=== PATIENT | female | born 1950 | race Hispanic/Latino ===

== ENCOUNTER 2018-03-09 14:54 | Emergency (ER) | payer SELFPAY ==
[2018-03-09] MEDS ORDERED: HYDROCODONE/APAP 5/325 MG TAB ONE (15:31)
--- NOTE | 2018-03-09 16:16 | RAD REPORT ---
EXAM DESCRIPTION: CT - Head C Spine Mpr Wo Con - 03/09/2018 3:54 pm CLINICAL HISTORY: Head and neck injury status post fall. Head and neck pain COMPARISON: None. TECHNIQUE: Computed axial tomography of the head and cervical spine was obtained. Sagittal and coronal reconstruction was performed. All CT scans are performed using dose optimization technique as appropriate and may include automated exposure control or mA/KV adjustment according to patient size. FINDINGS: An intracranial bleed is not seen. The ventricles are normal in caliber. An extra-axial fl uid collection is not noted. A 6 millimeter calcification is present within the right frontal lobe. An 8 millimeter calcification is present within the left parietal lobe. A 9 millimeter calcification is present within the left tem poral region. Fluid within the visualized sinuses and mastoids is not seen A cervical fracture is not visualized. No dislocation is noted. IMPRESSION: No acute intracranial abnormality is seen. Cerebral calcifications may be secondary to prior inflammation or cavernous angiomas. A cervical fracture is not visualized. If the patient continues to have symptoms to suggest intracra nial /spinal cord pathology then MRI would be recommended
--- NOTE | 2018-03-09 17:47 | RAD REPORT ---
EXAM DESCRIPTION: RAD - Lumbar Spine 3 Views - 03/09/2018 5:39 pm CLINICAL HISTORY: Back pain FINDINGS: The alignment of the lumbar spine is satisfactory. No fracture or dislocation is seen. The bones are osteoporotic Mild spondylosis involves the lumbar spine
--- NOTE | 2018-03-09 18:13 | ER ---
Nurse's Notes [facility] Name: Melisa Prajapati Age: 67 yrs Sex: Female : 1950 Arrival Date: 03/09/2018 Time: 14:55 Bed 15 Private MD: Diagnosis: Fall on same level from slipping, tripping and stumbling;Other and unspecified injuries of head;Myalgia Presentation: 03/09 14:56 Presenting complaint: EMS states: was in a ar when she slipped and fell and hit the hj back of her head, taking aspirin 81 mg; palpable hematoma on the back of head; negative for lac; denies LOC; A\T\O x 3; on C collar due to neck pain;. Transition of care: patient was not received from another setting of care. Onset of symptoms was March 09, 2018. Risk Assessment: Do you want to hurt yourself or someone else? Patient reports no desire to harm self or others. Initial Sepsis Screen: Does the patient meet any 2 criteria? No. Patient's initial sepsis screen is negative. Does the patient have a suspected source of infection? No. Patient's initial sepsis screen is negative. Care prior to arrival: None. 14:56 Method Of Arrival: Ambulatory 14:56 Acuity: FELICIANO 4 14:56 Mechanism of Injury: Fall. 14:56 Trauma event details: Injury occurred in the [facility], Injury occurred: in a public building. Injury occurred: March 09, 2018. Triage Assessment: 14:56 General: Appears in no apparent distress. uncomfortable, Behavior is calm, cooperative, hj appropriate for age. Pain: Complains of pain in back of head. Trauma Activation: Alert Physician: ED Physician; Name: Hugo; Notified At: 14:56; Arrived At: 14:56 Physician: General Surgeon; Name: ; Notified At: 14:56; Arrived At: Physician: Radiology; Name: ; Notified At: 14:56; Arrived At: Physician: Respiratory; Name: ; Notified At: 14:56; Arrived At: Physician: Lab; Name: ; Notified At: 14:56; Arrived At: Historical: - Allergies: 14:57 Cipro; hj - Home Meds: 14:57 metformin 1,000 mg oral tab 2 times per day [Active]; Jardiance oral oral [Active]; hj losartan oral oral [Active]; metoprolol tartrate Oral [Active]; Novolog Sub-Q [Active]; Victoza 2-Juan subcutaneous subcutaneous [Active]; - PMHx: 14:57 Diabetes - NIDDM; Hypertension; hj - PSHx: 14:57 Unable to obtain; hj - Immunization history:: Adult Immunizations up to date. - Social history:: Smoking status: Patient/guardian denies using tobacco. - Immunization history: Last tetanus immunization: unknown. - Ebola Screening: : Patient negative for fever greater than or equal to 101.5 degrees Fahrenheit, and additional compatible Ebola Virus Disease symptoms Patient denies exposure to infectious person Patient denies travel to an Ebola-affected area in the 21 days before illness onset. Screenin:56 Abuse screen: Denies threats or abuse. Denies injuries from another. Nutritional hj screening: No deficits noted. Tuberculosis screening: No symptoms or risk factors identified. Fall Risk None identified. Primary Survey: 14:56 A: Airway: patent, No supplemental oxygen in use on arrival. Oral cavity: clear, gag hj reflex present, Trachea midline. Breathing/Chest: Respiratory pattern: regular, Respiratory effort: spontaneous, unlabored, Breath sounds: clear, bilaterally. Chest inspection: symmetrical rise and fall of the chest. Circulation: Cardiac rhythm: sinus rhythm Heart tones present. Pulses: palpable right radial artery and left radial artery. Skin color: pink, Skin temperature: warm, dry. Disability Alert. 15:14 Reassessment Airway Airway Patent Oxygen No O2 Oral cavity Clear +Gag reflex hj Breathing/Chest Respiratory pattern Regular Respiratory effort Spontaneous Unlabored Breath sounds Clear Chest inspection Symmetrical Circulation Heart rhythm Sinus rhythm Heart tones Present Pulses Palpable Color [place] Temperature Warm Dry Disability Alert. 16:15 Reassessment Airway Airway Patent Oxygen No O2 Oral cavity Clear +Gag reflex hj Breathing/Chest Respiratory pattern Regular Respiratory effort Spontaneous Unlabored Breath sounds Clear Chest inspection Symmetrical Circulation Heart rhythm Sinus rhythm Heart tones Present Pulses Palpable Color [place] Temperature Warm Dry Disability Alert. Secondary Survey: 14:56 HEENT: No deficits noted. Gastrointestinal: No deficits noted. : No signs and/or hj symptoms were reported regarding the genitourinary system. Musculoskeletal: Reports pain in back of head. Assessment: 14:56 Reassessment: see triage for assessment;. hj 15:32 Reassessment: Patient and/or family updated on plan of care and expected duration. Pain hj level reassessed. Patient is alert, oriented x 3, equal unlabored respirations, skin warm/dry/pink. wheeled to CT;. 15:45 Reassessment: back from CT;. hj 16:30 Reassessment: Patient and/or family updated on plan of care and expected duration. Pain hj level reassessed. Patient is alert, oriented x 3, equal unlabored respirations, skin warm/dry/pink. C collar removed;. 16:56 Reassessment: No changes from previously documented assessment. awaiting POC:. hj Vital Signs: 14:58 BP 140 / 62; Pulse 82; Resp 18; Temp 97.9(TE); Pulse Ox 95% on R/A; Weight 73.03 kg; hj Height 5 ft. 1 in. (154.94 cm); Pain 8/10; 15:30 BP 145 / 75; Pulse 80; Resp 18; Pulse Ox 100% on R/A; hj 16:15 BP 158 / 76; Pulse 82; Resp 18; Pulse Ox 99% on R/A; hj 16:56 BP 155 / 75; Pulse 80; Resp 18; Pulse Ox 100% on R/A; hj 18:31 BP 150 / 74; Pulse 78; Resp 18; Pulse Ox 100% on R/A; hj 14:58 Body Mass Index 30.42 (73.03 kg, 154.94 cm) hj Ben Coma Score: 14:58 Eye Response: spontaneous(4). Verbal Response: oriented(5). Motor Response: obeys hj commands(6). Total: 15. Trauma Score (Adult): 14:58 Eye Response: spontaneous(1); Verbal Response: oriented(1); Motor Response: obeys hj commands(2); Systolic BP: > 89 mm Hg(4); Respiratory Rate: 10 to 29 per min(4); Ben Score: 15; Trauma Score: 12 ED Course: 14:55 Patient arrived in ED. hj 14:56 Patient has correct armband on for positive identification. Bed in low position. Call light in reach. Side rails up X 1. Adult w/ patient. 14:56 Thermoregulation: warm blanket given to patient. hj 14:57 Triage completed. hj 14:58 Arm band placed on right wrist. hj 15:09 Skylar Valencia [facility]C [facility]. snw 15:09 Johnnie Arias MD is Attending Physician. snw 15:10 Davis Ruffin, RN is Primary Nurse. hj 15:16 Patient maintains SpO2 saturation greater than 95% on room air. hj 15:39 CT completed. Patient moved to CT via stretcher. Patient moved back from CT. cw1 15:54 CT Head C Spine In Process Unspecified. EDMS 17:33 X-ray completed. Portable x-ray completed in exam room. Patient tolerated procedure jb2 well. 17:35 XRAY Lumbar Spine (3 Views) In Process Unspecified. EDMS 18:31 No provider procedures requiring assistance completed. Patient did not have IV access hj during this emergency room visit. Administered Medications: 15:25 Drug: [place] 5 mg-325 mg 1 tabs Route: PO; hj 16:16 Follow up: Response: No adverse reaction; Pain is decreased hj Intake: 18:31 PO: 50ml; Total: 50ml. hj Output: 18:31 Urine: 100ml; Total: 100ml. hj Outcome: 18:12 Discharge ordered by . snw 18:31 Discharged to home ambulatory, with family. hj 18:31 Condition: stable 18:31 Discharge instructions given to patient, family, Instructed on discharge instructions, follow up and referral plans. medication usage, Demonstrated understanding of instructions, follow-up care, medications, Prescriptions given X 2. 18:32 Patient's length of stay was not longer than 2 hours. hj 18:32 Patient left the ED. hj Signatures: Dispatcher [employer] EDMS Skylar Valencia FNP-C ANALYSIS MANAGER-Csnw Michelle Aguilare jb2 Mariola Rodriguez cw1 Davis Ruffin, RN RN hj Corrections: (The following items were deleted from the chart) 16:56 14:56 Presenting complaint: EMS states: was in a ar when she slipped and fell and hj hit the back of her head, taking aspirin 81 mg; palpable hematoma on the back of head; negative for lac; denies LOC; A\T\O x 3; hj
--- NOTE | 2018-03-09 18:14 | EDPHYS ---
Physician Documentation [facility] Name: Melisa Prajapati Age: 67 yrs Sex: Female : 1950 Arrival Date: 03/09/2018 Time: 14:55 Bed 15 Private MD: ED Physician Johnnie Arias HPI: 03/09 15:37 This 67 yrs old Female presents to ER via Ambulatory with complaints of Fall snw Injury. 15:37 Details of fall: The patient fell from an upright position, while walking. Onset: The snw symptoms/episode began/occurred suddenly, just prior to arrival. Associated injuries: The patient sustained injury to the head, neck injury. Severity of symptoms: At their worst the symptoms were moderate. The patient has not experienced similar symptoms in the past. It is unknown whether or not the patient has recently seen a physician. pt slipped going into a restaurant and struck back of head, no LOC. Historical: - Allergies: 14:57 Cipro; hj - Home Meds: 14:57 metformin 1,000 mg oral tab 2 times per day [Active]; Jardiance oral oral [Active]; hj losartan oral oral [Active]; metoprolol tartrate Oral [Active]; Novolog Sub-Q [Active]; Victoza 2-Juan subcutaneous subcutaneous [Active]; - PMHx: 14:57 Diabetes - NIDDM; Hypertension; hj - PSHx: 14:57 Unable to obtain; hj - Immunization history:: Adult Immunizations up to date. - Social history:: Smoking status: Patient/guardian denies using tobacco. - Immunization history: Last tetanus immunization: unknown. - Ebola Screening: : Patient negative for fever greater than or equal to 101.5 degrees Fahrenheit, and additional compatible Ebola Virus Disease symptoms Patient denies exposure to infectious person Patient denies travel to an Ebola-affected area in the 21 days before illness onset. ROS: 15:36 Constitutional: Negative for fever, chills, and weight loss, Eyes: Negative for injury, snw pain, redness, and discharge, ENT: Negative for injury, pain, and discharge, Cardiovascular: Negative for chest pain, palpitations, and edema, Respiratory: Negative for shortness of breath, cough, wheezing, and pleuritic chest pain, Abdomen/GI: Negative for abdominal pain, nausea, vomiting, diarrhea, and constipation, Back: Negative for injury and pain, : Negative for injury, bleeding, discharge, and swelling, Skin: Negative for injury, rash, and discoloration. 15:36 Neck: Positive for stiffness. 15:36 MS/extremity: Positive for pain, of the bilateral lateral lower extremities. 15:36 Neuro: Positive for headache. Exam: 15:35 Constitutional: This is a well developed, well nourished patient who is awake, alert, snw and in no acute distress. Eyes: Pupils equal round and reactive to light, extra-ocular motions intact. Lids and lashes normal. Conjunctiva and sclera are non-icteric and not injected. Cornea within normal limits. Periorbital areas with no swelling, redness, or edema. ENT: Nares patent. No nasal discharge, no septal abnormalities noted. Tympanic membranes are normal and external auditory canals are clear. Oropharynx with no redness, swelling, or masses, exudates, or evidence of obstruction, uvula midline. Mucous membranes moist. Chest/axilla: Normal chest wall appearance and motion. Nontender with no deformity. No lesions are appreciated. Cardiovascular: Regular rate and rhythm with a normal S1 and S2. No gallops, murmurs, or rubs. Normal PMI, no JVD. No pulse deficits. Respiratory: Lungs have equal breath sounds bilaterally, clear to auscultation and percussion. No rales, rhonchi or wheezes noted. No increased work of breathing, no retractions or nasal flaring. Abdomen/GI: Soft, non-tender, with normal bowel sounds. No distension or tympany. No guarding or rebound. No evidence of tenderness throughout. Skin: Warm, dry with normal turgor. Normal color with no rashes, no lesions, and no evidence of cellulitis. 15:35 Head/face: Noted is contusion, that is deep, of the central occipital area. 15:35 Neck: C-spine: C-collar placed [employer]. 15:35 Back: Exam negative for ROM is painful, hip flexion. muscle spasm, is appreciated in the left low back and right low back. Vital Signs: 14:58 BP 140 / 62; Pulse 82; Resp 18; Temp 97.9(TE); Pulse Ox 95% on R/A; Weight 73.03 kg; hj Height 5 ft. 1 in. (154.94 cm); Pain 8/10; 15:30 BP 145 / 75; Pulse 80; Resp 18; Pulse Ox 100% on R/A; hj 16:15 BP 158 / 76; Pulse 82; Resp 18; Pulse Ox 99% on R/A; hj 16:56 BP 155 / 75; Pulse 80; Resp 18; Pulse Ox 100% on R/A; hj 18:31 BP 150 / 74; Pulse 78; Resp 18; Pulse Ox 100% on R/A; hj 14:58 Body Mass Index 30.42 (73.03 kg, 154.94 cm) hj Ben Coma Score: 14:58 Eye Response: spontaneous(4). Verbal Response: oriented(5). Motor Response: obeys hj commands(6). Total: 15. Trauma Score (Adult): 14:58 Eye Response: spontaneous(1); Verbal Response: oriented(1); Motor Response: obeys hj commands(2); Systolic BP: > 89 mm Hg(4); Respiratory Rate: 10 to 29 per min(4); Ben Score: 15; Trauma Score: 12 MDM: 15:14 Patient medically screened. snw 18:16 Data reviewed: vital signs, nurses notes. Data interpreted: Pulse oximetry: on room air snw is 100 %. Interpretation: normal. Counseling: I had a detailed discussion with the patient and/or guardian regarding: the historical points, exam findings, and any diagnostic results supporting the discharge/admit diagnosis, the presence of at least one elevated blood pressure reading (>120/80) during this emergency department visit, radiology results, the need for outpatient follow up, to return to the emergency department if symptoms worsen or persist or if there are any questions or concerns that arise at home. Special discussion: Based on the history and exam findings, there is no indication for further emergent testing or inpatient evaluation. I discussed with the patient/guardian the need to see the primary care provider for further evaluation of the symptoms. 03/09 15:10 Order name: CT Head C Spine; Complete Time: 16:18 snw 03/09 16:30 Order name: XRAY Lumbar Spine (3 Views); Complete Time: 18:11 snw Administered Medications: 15:25 Drug: [place] 5 mg-325 mg 1 tabs Route: PO; hj 16:16 Follow up: Response: No adverse reaction; Pain is decreased hj Disposition: 03/09/18 18:12 Discharged to Home. Impression: Fall on same level from slipping, tripping and stumbling, Other and unspecified injuries of head, Myalgia. - Condition is Stable. - Discharge Instructions: Head Injury, Adult, Fall Prevention in the Home, Muscle Pain, Adult, Heat Therapy. - Prescriptions for Tylenol- Codeine #3 300-30 mg Oral Tablet - take 1 tablet by ORAL route every 6 hours As needed; 6 tablet. orphenadrine citrate 100 mg Oral Tablet Sustained Release - take 1 tablet by ORAL route 2 times per day As needed; 20 tablet. - Medication Reconciliation Form, Thank You Letter, Antibiotic Education, Prescription Opioid Use form. - Follow up: Private Physician; When: 2 - 3 days; Reason: Recheck today's complaints, Continuance of care, Re-evaluation by your physician. Follow up: Emergency Department; When: As needed; Reason: Worsening of condition. Addendum: 03/13/2018 07:11 Co-signature as Attending Physician, Johnnie Arias MD I agree with the assessment and k dr plan of care. Signatures: Dispatcher [employer] EDMS Johnnie Arias MD MD [facility] Skylar Valencia, REYNALDO-C [employer]-Paramjitw Davis Ruffin RN RN hj Corrections: (The following items were deleted from the chart) 03/09 18:32 18:12 03/09/2018 18:12 Discharged to Home. Impression: Fall on same level from slipping, tripping and stumbling; Other and unspecified injuries of head; Myalgia. Condition is Stable. Forms are Medication Reconciliation Form, Thank You Letter, Antibiotic Education, Prescription Opioid Use. Follow up: Private Physician; When: 2 - 3 days; Reason: Recheck today's complaints, Continuance of care, Re-evaluation by your physician. Follow up: Emergency Department; When: As needed; Reason: Worsening of condition. snw
== END 2018-03-09 18:32 | disposition home or self-care (01) ==
LOC: ER 14:54
DX: S09.8XXA Other specified injuries of head, initial encounter (principal); M79.1 Myalgia; W01.198A Fall on same level from slipping, tripping and stumbling with subsequent striking against other object, initial encounter; Y93.89 Activity, other specified; Y92.511 Restaurant or cafe as the place of occurrence of the external cause; Z79.4 Long term (current) use of insulin; Z88.8 Allergy status to other drugs, medicaments and biological substances; I10 Essential (primary) hypertension; E11.9 Type 2 diabetes mellitus without complications
CPT/HCPCS: 70450; 72100; 72125; 99284